=== PATIENT | female | born 1945 | race Caucasian/White ===

== ENCOUNTER → 2016-05-31 | Outpatient (CLI) | payer MEDICARE ==
[~2016-05-31] MED LIST: AMLO2.5T PO; CELE20TA PO; CHLO125TA PO; COLC1CAP PO; DIGITEK PO; ELIQ5TAB PO; FERR325T3 PO; FISH1000 PO; LOPR50TA PO; LOSA100T36 PO; MULT1TAB10 PO; OMEP40CA2 PO; VITA500C24 PO; VITATAB11 PO
--- NOTE | 2016-06-01 08:53 | REP ---
MRI LUMBAR SPINE WITHOUT AND WITH CONTRAST: HISTORY: Thoracic syrinx. CONTRAST: ProHance 20 mL. Decreased signal intensity on T2-weighted images is present in the L3-4 through L5-S1 intervertebral discs. The discs are decreased in height. These findings are consistent with disc degeneration. There is no disc bulge or herniation at the L1-2 level. The L1 nerves exit the neural foramina without compression. A diffuse disc bulge is present at the L2-3 level. There is minimal compression of the thecal sac. A small left intraforaminal disc protrusion is present. There is compression of the left L2 nerve in the neural foramen. The right L2 nerve exits the neural foramen without compression. A diffuse disc bulge is present at the L3-4 level. There is minimal compression of the thecal sac. There is hypertrophy of the posterior articulating facets. The L3 nerves exit the neural foramina without compression. A diffuse disc bulge is present at the L4-5 level. There is minimal compression of the thecal sac. There is hypertrophy of the posterior articulating facets. The L4 nerves exit the neural foramina without compression. A diffuse disc bulge is present at the L5-S1 level. There is minimal compression of the thecal sac. There is hypertrophy of the posterior articulating facets. The L5 nerves exit the neural foramina without compression. A syrinx is present in the lower thoracic spinal cord and conus medullaris. The conus medullaris terminates at the level of the L1-2 intervertebral disc. There is no intrathecal dermoid or lipoma. There is no abnormal enhancement. Hemangiomas are present in the L3 and L5 vertebral bodies. Increased signal intensity on T2-weighted images is present in the end plates of the L5 and S1 vertebral bodies. This represents degenerative change. IMPRESSION: 1. Diffuse disc bulge at the L2-3 level with minimal thecal sac compression. A small left intraforaminal disc protrusion is present. There is compression of the left L2 nerve in the neural foramen. 2. Diffuse disc bulges at the L3-4 through L5-S1 levels with minimal thecal sac compression. 3. Thoracic spinal cord syrinx. Please refer to MRI of the thoracic spine. Signed by Jez Fowler MD 06/01/2016 08:58 A
--- NOTE | 2016-06-01 09:13 | REP ---
MR CERVICAL SPINE WITHOUT AND WITH CONTRAST: HISTORY: Syrinx. CONTRAST: ProHance 20 mL. A disc bulge is present at the C4-5 level. There is minimal effacement of the thecal sac without spinal cord compression. Bilateral uncinate process hypertrophy is present. This produces minimal narrowing of the C4 neural foramina. A disc bulge with associated osteophyte formation is present at the C5-6 level. There is minimal effacement of the thecal sac without spinal cord compression. Bilateral uncinate process hypertrophy is present. This produces minimal narrowing of the C5 neural foramina. A disc bulge with associated osteophyte formation is present at the C6-7 level. There is mild effacement of the thecal sac without spinal cord compression. Bilateral uncinate process hypertrophy is present. This produces minimal and mild narrowing of the right and left C6 neural foramina respectively. There is no other disc bulge or herniation. The remaining neural foramina are patent. The spinal cord is normal in signal intensity. There is no intradural extramedullary lesion. There is no abnormal enhancement. Hemangiomas are present in the C7 and T3 vertebral bodies. Normal signal intensity is present in the remaining cervical vertebral bodies. IMPRESSION: There is cervical spondylosis at the C4-5 through C6-7 levels without spinal cord compression. Signed by Jez Fowler MD 06/01/2016 09:24 A
== END ==
LOC: M RAD 15:55
PROVIDERS: ATTEND Internal Medicine
DX: G95.0 Syringomyelia and syringobulbia (principal); M47.812 Spondylosis without myelopathy or radiculopathy, cervical region
CPT/HCPCS: 72156; 72158; A9576

== ENCOUNTER → 2016-07-19 | Outpatient (REF) | payer MEDICARE ==
[~2016-07-19] MED LIST changes: +LOPR1TAB6 PO; -LOPR50TA PO
[2016-07-19 16:50] LABS: BASO % 0.6 % (0.0-1.0); EOS # 0.2 K/mm3 (0.0-0.50); EOS % 2.3 % (0.0-3.0); LARGE UNSTAINED CELL # 0.1 K/mm3 (0.0-0.4); LARGE UNSTAINED CELL % 1.4 % (0.0-4.0); LYMPH # 1.6 K/mm3 (1.5-4.5); LYMPH % 20.6 % (24.0-44.0); MEAN CORPUSCULAR HEMOGLOBIN 31.4 pg (27.0-33.0); MEAN CORPUSCULAR HGB CONC 33.3 g/dl (32.0-36.5); MEAN CORPUSCULAR VOLUME 94.3 fl (80.0-96.0); MONO # 0.4 K/mm3 (0.0-0.8); NEUTROPHILS # 5.1 K/mm3 (1.8-7.7); NEUTROPHILS % 70.2 % (36.0-66.0); PLATELET COUNT, AUTOMATED 287 k/mm3 (150-450); RED CELL DISTRIBUTION WIDTH 13.8 % (11.5-14.5); WHITE BLOOD COUNT 7.3 K/mm3 (4.0-10.0)
[2016-07-19 17:28] LABS: ALBUMIN 3.8 GM/DL (3.2-5.2); ALBUMIN/GLOBULIN RATIO 1.36 (1.00-1.93); ALKALINE PHOSPHATASE 92 U/L (45-117); ALT/SGPT 61 U/L (12-78); ANION GAP 10 MEQ/L (8-16); AST/SGOT 31 U/L (15-37); BILIRUBIN,TOTAL 0.4 MG/DL (0.2-1.0); BLOOD UREA NITROGEN 25 MG/DL (7-18); CARBON DIOXIDE LEVEL 26 MEQ/L (21-32); CHLORIDE LEVEL 106 MEQ/L (98-107); CREATININE FOR GFR 0.91 MG/DL (0.55-1.02); DIGOXIN LEVEL 0.6 NG/ML (0.5-2.0); GLOMERULAR FILTRATION RATE > 60.0 (>45); GLUCOSE, FASTING 226 MG/DL (80-110); PERCENT SATURATION 21.7 % (13.2-37.4); SODIUM LEVEL 142 MEQ/L (136-145); TOTAL IRON BINDING CAPACITY 378 UG/DL (250-450); TOTAL PROTEIN 6.6 GM/DL (6.4-8.2)
== END ==
LOC: M LAB REF 16:43
PROVIDERS: ATTEND Physician Assistant Medical
DX: R53.83 Other fatigue (principal)

== ENCOUNTER → 2016-08-18 | Outpatient (REF) | payer MEDICARE ==
[2016-08-18 14:38] LABS: DIGOXIN LEVEL 0.9 NG/ML (0.5-2.0)
[2016-08-18 19:29] LABS: FERRITIN 9 NG/ML (8-252); PERCENT SATURATION 11.8 % (13.2-37.4); TOTAL IRON BINDING CAPACITY 467 UG/DL (250-450); VITAMIN B12 LEVEL 613 PG/ML (247-911)
[2016-08-18 19:30] LABS: FOLATE > 24.0 NG/ML (>5.4)
== END ==
LOC: M LAB REF 13:55
PROVIDERS: ATTEND Internal Medicine

== ENCOUNTER → 2016-09-20 | Outpatient (REF) | payer MEDICARE | LOC: M LAB REF 12:14 | PROVIDERS: ATTEND Internal Medicine | DX: M10.9 Gout, unspecified (principal) ==

== ENCOUNTER → 2016-09-29 | Outpatient (CLI) | payer MEDICARE ==
[~2016-09-29] MED LIST changes: +E-Z-PAQUE 96% w/w SUSP 176GM BTL As Ordered ONE
--- NOTE | 2016-09-29 18:06 | REP ---
SMALL BOWEL FOLLOW-THROUGH: The procedure was performed under the direct supervision of Dr. Cassidy. The images were reviewed with Dr. Cassidy. The deputy county clerk film shows no organomegaly or pathological masses. The intestinal gas pattern is nonspecific. Liquid barium was administered and the barium column was followed through the small bowel to the level of the terminal ileum. Small bowel transit time is approximately 95 minutes. During fluoroscopy gentle palpation shows all loops are freely movable and pliable. There are no fixed or angulated loops. The small bowel mucosal pattern is normal in course and caliber. There is no transition to suggest a partial small bowel obstruction. Spot filming of terminal ileum shows it to be unremarkable. IMPRESSION: Small bowel follow-through examination within normal limits. 47 seconds of fluoroscopy time was utilized for this procedure. Reviewed by JOANN Mims 09/30/2016 04:59 PEdited and Signed by Scot Cassidy MD 09/30/2016 07:54 P
== END ==
LOC: M RAD 08:12
PROVIDERS: ATTEND Internal Medicine Gastroenterology
DX: D50.9 Iron deficiency anemia, unspecified (principal)

== ENCOUNTER → 2016-10-14 | Outpatient (CLI) | payer MEDICARE ==
[~2016-10-14] VITALS: Ht 171.4 cm; Wt 103.0 kg
[~2016-10-14] MED LIST changes: +ALLO100T PO; +ATOR1TAB19 PO; +DIGO0.25 PO; +DULO1CAP3 PO; -E-Z-PAQUE 96% w/w SUSP 176GM BTL As Ordered ONE; +FERR325T PO; +FLEC25TA PO; +LIDOCAINE 2% INJ 100 MG/5 ML SDV (FOR ANES.) As Ordered ONE; +NS 1,000 ML IV SCH; +PROPOFOL 200 MG/20 ML VIAL As Ordered ONE; +TRAZ50TA4 PO
--- NOTE | 2016-10-14 08:50 | ROOR ---
Patient Name: Liyah Salinas Procedure Date: 10/14/2016 8:26 AM Date of : 1945 Age: 71 Room: [facility] Gender: Female Note Status: Finalized Procedure: Upper GI endoscopy Indications: Iron deficiency anemia, Hiatal hernia Providers: Gautam BROWN MD Referring MD: Marian SMITH MD Requesting Provider: Medicines: Monitored Anesthesia Care Complications: No immediate complications. Procedure: Pre-Anesthesia Assessment: - The heart rate, respiratory rate, oxygen saturations, blood pressure, adequacy of pulmonary ventilation, and response to care were monitored throughout the procedure. The Endoscope was introduced through the mouth, and advanced to the second part of duodenum. The upper GI endoscopy was accomplished without difficulty. The patient tolerated the procedure well. Findings: A single small bleb with a localized distribution was found in the proximal esophagus. The examined esophagus was normal. The Z-line was regular and was found 30 cm from the incisors. A large hiatal hernia was found. Normal mucosa was found in the entire examined stomach. The examined duodenum was normal. Impression: - Normal esophagus., Z-line regular, 30 cm from the incisors. - Large hiatal hernia free of camerons erosions. Normal mucosa was found in the entire stomach. - Normal examined duodenum. - No specimens collected. Recommendation: - Observe patient's clinical course. - Keep on PPI and iron supplement indefinitely. - For significant anemia/iron deficit despite maximal therapy, would refer for surgical repair of hiatal hernia. Gautam Brown MD Gautam BROWN MD 10/14/2016 8:49:33 AM This report has been signed electronically. Number of Addenda: 0 Note Initiated On: 10/14/2016 8:26 AM Estimated Blood Loss: Estimated blood loss: none.
[2016-10-14 09:00] VITALS: BP 150/76
== END ==
LOC: M OPP 07:44
PROVIDERS: ATTEND Internal Medicine Gastroenterology
DX: D50.9 Iron deficiency anemia, unspecified (principal); K44.9 Diaphragmatic hernia without obstruction or gangrene; K22.8 Other specified diseases of esophagus; I10 Essential (primary) hypertension; I48.91 Unspecified atrial fibrillation; F41.9 Anxiety disorder, unspecified; F32.9 Major depressive disorder, single episode, unspecified; Z80.0 Family history of malignant neoplasm of digestive organs; Z79.01 Long term (current) use of anticoagulants; Z79.899 Other long term (current) drug therapy; Z88.0 Allergy status to penicillin; Z88.2 Allergy status to sulfonamides

== ENCOUNTER → 2016-10-28 | Outpatient (REF) | payer MEDICARE ==
[~2016-10-28] MED LIST changes: -LIDOCAINE 2% INJ 100 MG/5 ML SDV (FOR ANES.) As Ordered ONE; -NS 1,000 ML IV SCH; -PROPOFOL 200 MG/20 ML VIAL As Ordered ONE
== END ==
LOC: M LAB REF 16:41
PROVIDERS: ATTEND Internal Medicine
DX: M10.9 Gout, unspecified (principal)

== ENCOUNTER → 2017-03-14 | Outpatient (REF) | payer MEDICARE ==
[~2017-03-14] MED LIST changes: +FERR1TAB8 PO; -FERR325T PO; +TRAZ50TA11 PO; -TRAZ50TA4 PO
[2017-03-14 18:52] LABS: DIGOXIN LEVEL 1.1 NG/ML (0.5-2.0); URIC ACID 6.6 MG/DL (2.6-6.0)
== END ==
LOC: M LAB REF 16:39
PROVIDERS: ATTEND Internal Medicine
DX: E55.9 Vitamin D deficiency, unspecified (principal); M10.9 Gout, unspecified; I48.0 Paroxysmal atrial fibrillation

== ENCOUNTER 2017-05-24 20:24 | Emergency (ER) | payer MEDICARE ==
[2017-05-24] MEDS: LevoFLOXacin IV 500 MG in APPROPRIATE DILUENT 1 EA IV (21:45)
[2017-05-24] MEDS: metroNIDAZOLE 500 MG in APPROPRIATE DILUENT 1 EA IV (22:30)
[2017-05-24] MEDS: TETANUS/DIPHTHERIA TOX ADSORB ADULT 0.5ML SYR/VIAL (90714) IM (22:57)
== END 2017-05-25 00:53 | disposition home or self-care (01) ==
LOC: M ED 05-25 00:53
DX: S61.254A Open bite of right ring finger without damage to nail, initial encounter (principal); Y04.1XXA Assault by human bite, initial encounter; Y92.009 Unspecified place in unspecified non-institutional (private) residence as the place of occurrence of the external cause; I48.91 Unspecified atrial fibrillation; E11.9 Type 2 diabetes mellitus without complications; I10 Essential (primary) hypertension; E78.9 Disorder of lipoprotein metabolism, unspecified; Z79.899 Other long term (current) drug therapy; Z88.0 Allergy status to penicillin; Z88.1 Allergy status to other antibiotic agents; Z88.2 Allergy status to sulfonamides; Z87.891 Personal history of nicotine dependence
CPT/HCPCS: 90714

== ENCOUNTER → 2017-08-15 | Outpatient (REF) | payer MEDICARE ==
[2017-08-15 18:01] LABS: DIGOXIN LEVEL 0.9 NG/ML (0.5-2.0)
[2017-08-15 18:01] LABS: URIC ACID 6.1 MG/DL (2.6-6.0)
== END ==
LOC: M LAB REF 16:56
DX: M10.9 Gout, unspecified (principal); I48.0 Paroxysmal atrial fibrillation
CPT/HCPCS: 80162

== ENCOUNTER → 2017-09-20 | Outpatient (CLI) | payer MEDICARE | LOC: M RAD 13:14 | DX: Z12.31 Encounter for screening mammogram for malignant neoplasm of breast (principal) | CPT/HCPCS: 77067 ==

== ENCOUNTER 2017-10-06 06:06 | Day surgery (SDC) | payer MEDICARE ==
[~2017-10-06 06:06] MED LIST changes: -ALLO100T PO; -AMLO2.5T PO; -ATOR1TAB19 PO; -CELE20TA PO; -CHLO125TA PO; -COLC1CAP PO; -DIGITEK PO; -DIGO0.25 PO; -DULO1CAP3 PO; -ELIQ5TAB PO; -FERR1TAB8 PO; -FERR325T3 PO; -FISH1000 PO; -FLEC25TA PO; -LOPR1TAB6 PO; -LOSA100T36 PO; -MULT1TAB10 PO; -OMEP40CA2 PO; -TRAZ50TA11 PO; -VITA500C24 PO; -VITATAB11 PO; +ceFAZolin SOD 1 GM in D5W MINI-BAG PLUS 50 ML IV
[2017-10-06] MEDS ORDERED: LevoFLOXacin(LEVAQUIN)500 MG/100 ML BAG (J1956) As Ordered (07:20)
[2017-10-06] MEDS ORDERED: PROPOFOL 200 MG/20 ML VIAL As Ordered (07:21)
[2017-10-06] MEDS ORDERED: MIDAZOLAM INJ 2 MG/2 ML VIAL (J2250) As Ordered (07:21)
[2017-10-06] MEDS ORDERED: LIDOCAINE 2% INJ 100 MG/5 ML SDV (FOR ANES.) As Ordered (07:21)
[2017-10-06] MEDS ORDERED: fentaNYL 100 MCG/2 ML INJECTION (J3010) As Ordered (07:21)
[2017-10-06] MEDS: LR 1,000 ML IV (07:25)
[2017-10-06] MEDS: LevoFLOXacin IV 500 MG in APPROPRIATE DILUENT 1 EA IV (07:27)
[2017-10-06] MEDS ORDERED: LevoFLOXacin IV 500 MG in APPROPRIATE DILUENT 1 EA IV (07:30)
[2017-10-06 07:47] LABS: BEDSIDE GLUCOSE 195 MG/DL (83-110)
[2017-10-06] MEDS: BUPIVACAINE/EPIN 0.5% 30 ML VIAL As Ordered ×2 (08:00→08:13)
== END 2017-10-06 09:10 | disposition home or self-care (01) ==
LOC: M SDC 06:06
DX: D17.1 Benign lipomatous neoplasm of skin and subcutaneous tissue of trunk (principal); I48.91 Unspecified atrial fibrillation; I10 Essential (primary) hypertension; G47.30 Sleep apnea, unspecified; K44.9 Diaphragmatic hernia without obstruction or gangrene; M10.9 Gout, unspecified; D64.9 Anemia, unspecified; Z79.899 Other long term (current) drug therapy
CPT/HCPCS: 11406

== ENCOUNTER → 2017-12-12 | Outpatient (REF) | payer MEDICARE ==
[2017-12-12 17:35] LABS: RETICULOCYTE # 145.5 10^9/L (17-77); RETICULOCYTE % 3.4 % (0.5-1.5)
[2017-12-12 17:50] LABS: C REACTIVE PROTEIN QUANTITATIV < 0.30 MG/DL (0.00-0.30); FERRITIN 8 NG/ML (8-252); IRON (FE) 60 UG/DL (50-170); PERCENT SATURATION 12.6 % (13.2-45.0); TOTAL IRON BINDING CAPACITY 476 UG/DL (250-450)
[2017-12-12 17:55] LABS: FOLATE 14.2 NG/ML; VITAMIN B12 LEVEL 643 PG/ML
[2017-12-13 09:39] LABS: ERYTHROCYTE SEDIMENTATION RATE 6 mm/hr (0-30)
== END ==
LOC: M LAB REF 16:40
DX: D50.9 Iron deficiency anemia, unspecified (principal)
CPT/HCPCS: 82746

== ENCOUNTER → 2018-01-01 | Outpatient (REF) | payer MEDICARE ==
[2018-01-01 15:56] LABS: HEMATOCRIT 39.3 % (36.0-47.0); HEMOGLOBIN 11.9 g/dl (12.0-15.5); MEAN CORPUSCULAR HEMOGLOBIN 26.8 pg (27.0-33.0); MEAN CORPUSCULAR HGB CONC 30.3 g/dl (32.0-36.5); MEAN CORPUSCULAR VOLUME 88.5 fl (80.0-96.0); PLATELET COUNT, AUTOMATED 270 10^3/uL (150-450); RED BLOOD COUNT 4.44 10^6/uL (4.00-5.40); WHITE BLOOD COUNT 4.2 10^3/uL (4.0-10.0)
[2018-01-01 16:19] LABS: MAGNESIUM LEVEL 2.5 MG/DL (1.8-2.4)
== END ==
LOC: M LABDRAW1 13:46
DX: I48.0 Paroxysmal atrial fibrillation (principal)
CPT/HCPCS: 83735

== ENCOUNTER 2018-01-30 07:27 | Day surgery (SDC) | payer MEDICARE ==
[2018-01-30] MEDS ORDERED: PROPOFOL 200 MG/20 ML VIAL As Ordered ×2 (07:29)
[2018-01-30] MEDS: NS 1,000 ML IV (07:45)
[2018-01-30] MEDS ORDERED: LIDOCAINE 2% INJ 100 MG/5 ML SDV (FOR ANES.) As Ordered (08:40)
[2018-01-30] MEDS ORDERED: fentaNYL 100 MCG/2 ML INJECTION (J3010) As Ordered (08:41)
== END 2018-01-30 09:36 | disposition home or self-care (01) ==
LOC: M OPP 07:27
DX: D50.9 Iron deficiency anemia, unspecified (principal); D12.3 Benign neoplasm of transverse colon; K57.30 Diverticulosis of large intestine without perforation or abscess without bleeding; K64.8 Other hemorrhoids; K44.9 Diaphragmatic hernia without obstruction or gangrene; I48.91 Unspecified atrial fibrillation; I10 Essential (primary) hypertension; E78.5 Hyperlipidemia, unspecified; E11.9 Type 2 diabetes mellitus without complications; M10.9 Gout, unspecified; K21.9 Gastro-esophageal reflux disease without esophagitis; R12 Heartburn; R23.3 Spontaneous ecchymoses; M19.90 Unspecified osteoarthritis, unspecified site; M54.89 Other dorsalgia; M54.2 Cervicalgia; F41.9 Anxiety disorder, unspecified; F32.9 Major depressive disorder, single episode, unspecified; Z78.0 Asymptomatic menopausal state; G47.8 Other sleep disorders; R06.83 Snoring; Z88.0 Allergy status to penicillin; Z88.2 Allergy status to sulfonamides; Z79.899 Other long term (current) drug therapy; Z79.01 Long term (current) use of anticoagulants; Z80.3 Family history of malignant neoplasm of breast; Z80.8 Family history of malignant neoplasm of other organs or systems
CPT/HCPCS: 45385

== ENCOUNTER → 2018-02-14 | Outpatient (REF) | payer MEDICARE ==
[2018-02-14 19:23] LABS: DIGOXIN LEVEL 0.8 NG/ML (0.5-2.0)
== END ==
LOC: M LAB REF 17:20
DX: I48.0 Paroxysmal atrial fibrillation (principal)
CPT/HCPCS: 80162

== ENCOUNTER → 2018-09-19 | Outpatient (REF) | payer MEDICARE ==
[~2018-09-19] MED LIST changes: +ALLO100T PO; +ALLO10TA PO; +AMLO2.5T3 PO; +ATOR1TAB19 PO; +CELE20TA PO; +CHLO125TA PO; +CIPR-249 PO; +COEN200C PO; +COLC1CAP PO; +DIGITEK PO; +DIGO0.25 PO; +DIGO0.259 PO; +DULO1CAP3 PO; +ELIQ5TAB PO; +FERR1TAB8 PO; +FERR325T3 PO; +FERR325T82 PO; +FISH1000 PO; +FLEC25TA PO; +LOPR1TAB6 PO; +LOSA100T50 PO; +METR-265 PO; +MULT1TAB10 PO; +OMEP40CA2 PO; +TRAZ-160 PO; +VITA500C24 PO; +VITATAB11 PO; +ZYRT10CA5 PO; -ceFAZolin SOD 1 GM in D5W MINI-BAG PLUS 50 ML IV
== END ==
LOC: M LAB REF 16:40
PROVIDERS: ATTEND Internal Medicine
DX: M10.9 Gout, unspecified (principal)

== ENCOUNTER → 2019-01-01 | Outpatient (REF) | payer MEDICARE ==
[~2019-01-01] MED LIST changes: -DULO1CAP3 PO; +DULO1CAP6 PO; -TRAZ-160 PO; +TRAZ-252 PO
[2019-01-02 14:42] LABS: PERCENT SATURATION 7.1 % (13.2-45.0)
== END ==
LOC: M LAB REF 17:25
PROVIDERS: ATTEND Internal Medicine
DX: M10.9 Gout, unspecified (principal); D50.9 Iron deficiency anemia, unspecified

== ENCOUNTER → 2019-02-04 | Outpatient (CLI) | payer MEDICARE ==
--- NOTE | 2019-02-04 15:30 | REP ---
BILATERAL SCREENING DIGITAL MAMMOGRAM WITH 3D TOMOSYNTHESIS: There are no palpable abnormalities or other breast complaints. The the patient states she is not had a clinical breast examination in over a year. The the patient states she performs self-breast examinations four times per year. The Tyrer-Cuzick Score is: 7.7% . Comparison is 07/14/2015 and 08/29/2012. There are scattered areas of fibroglandular density. There is no dominant mass, micro calcific cluster or architectural distortion that would indicate malignancy. There are no additional findings on 3D tomosynthesiss. There is no change from the prior study. Impression: BIRADS/ACR category 1 mammogram. Negative. Recommendation: Routine annual screening mammography. This mammogram was interpreted with the aid of a FDA approved computer-aided detection system. A. Negative mammogram reports should not delay biopsy if a dominant or clinically suspicious mass is present. B. Not all breast cancers are identified by mammography or tomosynthesis. C. Adenosis and dense breasts may obscure an underlying neoplasm. Patient letter M1. Electronically Signed by Scot Gallo MD 02/04/2019 03:21 P
== END ==
LOC: M WHC 13:39
PROVIDERS: ATTEND Internal Medicine
DX: Z12.31 Encounter for screening mammogram for malignant neoplasm of breast (principal)

== ENCOUNTER → 2019-02-21 | Outpatient (REF) | payer MEDICARE ==
[2019-02-21 14:31] LABS: C REACTIVE PROTEIN QUANTITATIV < 0.30 MG/DL (0.00-0.30); DIGOXIN LEVEL 1.2 NG/ML (0.5-2.0)
== END ==
LOC: M LAB REF 13:42
PROVIDERS: ATTEND Internal Medicine
DX: M10.9 Gout, unspecified (principal); I48.0 Paroxysmal atrial fibrillation

== ENCOUNTER → 2019-02-28 | Outpatient (CLI) | payer MEDICARE ==
[~2019-02-28] MED LIST changes: -OMEP40CA2 PO; +OMEP40CA97 PO
--- NOTE | 2019-02-28 12:18 | REP ---
Chest x-ray: Two views. History: Short of breath. Comparison chest x-ray: March 10, 2015. Findings: There is a [id number] size hiatal hernia behind the heart. The lungs are well inflated and clear. Heart is not enlarged. The aorta is slightly calcific. There are mild degenerative changes in the thoracic spine. Pulmonary vasculature is not increased. Pleural angles are sharp. Impression: Moderate to large hiatal hernia. Otherwise no acute disease. Electronically Signed by Navid Arvizu MD 02/28/2019 12:10 P
== END ==
LOC: M RAD 10:54
PROVIDERS: ATTEND Internal Medicine
DX: M51.34 Other intervertebral disc degeneration, thoracic region (principal); K44.9 Diaphragmatic hernia without obstruction or gangrene; R06.02 Shortness of breath

== ENCOUNTER → 2019-04-03 | Outpatient (REF) | payer MEDICARE ==
[2019-04-04 13:50] LABS: PERCENT SATURATION 9.3 % (13.2-45.0)
== END ==
LOC: M LAB REF 16:41
PROVIDERS: ATTEND Internal Medicine
DX: I48.0 Paroxysmal atrial fibrillation (principal)

== ENCOUNTER → 2020-03-10 | Outpatient (REF) | payer MEDICARE ==
[~2020-03-10] MED LIST changes: -COEN200C PO; +RA C200C2 PO
== END ==
LOC: M LAB REF 13:31
PROVIDERS: ATTEND Internal Medicine Endocrinology, Diabetes & Metabolism
DX: E04.1 Nontoxic single thyroid nodule (principal)

== ENCOUNTER → 2020-03-19 | Outpatient (REF) | payer MEDICARE | LOC: M LAB REF 16:17 | PROVIDERS: ATTEND Internal Medicine | DX: M79.673 Pain in unspecified foot (principal) ==

== ENCOUNTER → 2020-05-27 | Outpatient (REF) | payer MEDICARE | LOC: M LAB REF 16:21 | PROVIDERS: ATTEND Internal Medicine | DX: I50.32 Chronic diastolic (congestive) heart failure (principal) ==

== ENCOUNTER → 2020-07-13 | Outpatient (REF) | payer MEDICARE ==
[2020-07-13 17:33] LABS: AMORPHOUS SEDIMENT SMALL (NEGATIVE); APPEARANCE, URINE CLOUDY (CLEAR); BACTERIA, URINE AUTO NEGATIVE (NEGATIVE); BILIRUBIN, URINE AUTO NEGATIVE (NEGATIVE); BLOOD, URINE BLOOD 1+ (NEGATIVE); COLOR, URINE YELLOW (YELLOW); GLUCOSE, URINE (UA) AUTO NEGATIVE (NEGATIVE); KETONE, URINE AUTO TRACE mg/dL (NEGATIVE); LEUKOCYTE ESTERASE, URINE AUTO TRACE (NEGATIVE); MUCUS, URINE SMALL (NEGATIVE); NITRITE, URINE AUTO NEGATIVE (NEGATIVE); PROTEIN, URINE AUTO NEGATIVE (NEGATIVE); RBC, URINE AUTO 11 /HPF (0-3); SPECIFIC GRAVITY URINE AUTO 1.023 (1.002-1.035); SQUAMOUS EPITHELIAL CELL UR AU 1 /HPF (0-6); UROBILINOGEN, URINE AUTO 0.2 mg/dL (0.0-2.0); WBC, URINE AUTO 2 /HPF (0-3)
== END ==
LOC: M LAB REF 16:23
PROVIDERS: ATTEND Obstetrics & Gynecology
DX: N39.41 Urge incontinence (principal)

== ENCOUNTER 2020-08-27 20:15 | Emergency (ER) | payer MEDICARE ==
[~2020-08-27] VITALS: Ht 170.2 cm; Wt 114.6 kg
[2020-08-27] MEDS ORDERED: DULO1CAP4 (20:46)
[2020-08-27] MEDS ORDERED: METF750T36 (20:46)
[2020-08-27 21:50] LABS: BASO # 0.1 10^3/uL (0.0-0.2); BASO % 0.5 % (0.0-1.0); EOS # 0.1 10^3/uL (0.0-0.5); EOS % 0.9 % (0.0-3.0); HEMATOCRIT 41.8 % (36.0-47.0); HEMOGLOBIN 13.7 g/dl (12.0-15.5); LYMPH # 1.6 10^3/uL (1.5-5.0); LYMPH % 16.8 % (24.0-44.0); MEAN CORPUSCULAR HGB CONC 32.8 g/dl (32.0-36.5); MEAN CORPUSCULAR VOLUME 88.4 fl (80.0-96.0); MONO # 0.9 10^3/uL (0.0-0.8); MONO % 9.5 % (2.0-8.0); NEUTROPHILS # 6.7 10^3/uL (1.5-8.5); NEUTROPHILS % 71.8 % (36.0-66.0); PLATELET COUNT, AUTOMATED 266 10^3/uL (150-450); RED BLOOD COUNT 4.73 10^6/uL (4.00-5.40); WHITE BLOOD COUNT 9.4 10^3/uL (4.0-10.0)
[2020-08-27 22:00] LABS: INR 1.25
[2020-08-27] MEDS ORDERED: NS 500 ML IV ONE (22:05)
[2020-08-27 22:19] LABS: ALBUMIN 3.8 GM/DL (3.2-5.2); BILIRUBIN,DIRECT 0.1 MG/DL (0.0-0.2); BILIRUBIN,TOTAL 0.6 MG/DL (0.2-1.0); CALCIUM LEVEL 9.3 MG/DL (8.8-10.2); CK-MB VALUE MASS 2.2 NG/ML (<3.6); CREATININE FOR GFR 1.05 MG/DL (0.55-1.30); GLOMERULAR FILTRATION RATE 54.5 (>39); MB/CK RELATIVE INDEX 3.01 (< OR =4); POTASSIUM SERUM 3.7 MEQ/L (3.5-5.1); TOTAL PROTEIN 6.8 GM/DL (6.4-8.2); TROPONIN I 0.02 NG/ML (< 0.10)
--- NOTE | 2020-08-27 22:23 | REPVR ---
PROCEDURE INFORMATION: Exam: XR Chest Exam date and time: 08/27/20 (9:09pm) Age: 75 years old Clinical indication: Chest pain TECHNIQUE: Imaging protocol: Portable CXR Views: 1 view COMPARISON: Chest films of 02/28/19 FINDINGS: Lungs: No consolidation. Pleural spaces: Unremarkable. No pleural effusions. No pneumothorax. Heart/Mediastinum: Unremarkable. No cardiomegaly. Bones/joints: Unremarkable. Other findings: A large hiatal hernia (9-10 cm size) is again seen in the retrocardiac region. IMPRESSION: No acute findings. Redemonstration of a large retrocardiac hiatal hernia. Electronically signed by: Sobeida Shaw On 08/27/2020 22:24:24 PM
[2020-08-28 00:30] VITALS: BP 173/82
--- NOTE | 2020-08-28 20:42 | ECGEPIP ---
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
--- NOTE | 2020-08-29 07:23 | ED PDOC ---
Post-Departure Follow-Up radiology report faxed to Ev Dixon MD Aug 29, 2020 07:23
== END 2020-08-28 00:58 | disposition home or self-care (01) ==
LOC: M ED 20:15
DX: R00.2 Palpitations (principal); I48.91 Unspecified atrial fibrillation; E11.9 Type 2 diabetes mellitus without complications; I10 Essential (primary) hypertension; Z79.01 Long term (current) use of anticoagulants; Z79.899 Other long term (current) drug therapy; Z88.0 Allergy status to penicillin; Z88.2 Allergy status to sulfonamides

== ENCOUNTER → 2020-09-22 | Outpatient (REF) | payer MEDICARE ==
[~2020-09-22] MED LIST changes: +DULO1CAP4; +METF750T36
== END ==
LOC: M LAB REF 16:17
PROVIDERS: ATTEND Internal Medicine
DX: I48.0 Paroxysmal atrial fibrillation (principal)

== ENCOUNTER → 2020-11-16 | Outpatient (REF) | payer MEDICARE ==
[~2020-11-16] MED LIST changes: +OMEP40CA4 PO; -OMEP40CA97 PO
== END ==
LOC: M LAB REF 16:26
PROVIDERS: ATTEND Internal Medicine
DX: I48.0 Paroxysmal atrial fibrillation (principal)

== ENCOUNTER → 2020-11-24 | Outpatient (CLI) | payer MEDICARE ==
[2020-11-24 13:36] LABS: HEMATOCRIT 45.1 % (36.0-47.0); MEAN CORPUSCULAR HEMOGLOBIN 29.5 pg (27.0-33.0); MEAN CORPUSCULAR VOLUME 94.9 fl (80.0-96.0); PLATELET COUNT, AUTOMATED 249 10^3/uL (150-450); RED BLOOD COUNT 4.75 10^6/uL (4.00-5.40)
[2020-11-24 14:14] LABS: ALBUMIN 3.6 GM/DL (3.2-5.2); ALT/SGPT 45 U/L (12-78); BILIRUBIN,TOTAL 0.6 MG/DL (0.2-1.0); BLOOD UREA NITROGEN 17 MG/DL (7-18); CALCIUM LEVEL 9.2 MG/DL (8.8-10.2); CARBON DIOXIDE LEVEL 30 MEQ/L (21-32); CHLORIDE LEVEL 106 MEQ/L (98-107); CREATININE FOR GFR 0.84 MG/DL (0.55-1.30); GLOMERULAR FILTRATION RATE > 60.0 (>39); GLUCOSE, FASTING 161 MG/DL (70-100); NT-PRO BNP 203 PG/ML (<125); POTASSIUM SERUM 4.3 MEQ/L (3.5-5.1); SODIUM LEVEL 142 MEQ/L (136-145); TOTAL PROTEIN 6.5 GM/DL (6.4-8.2)
== END ==
LOC: M PLALAB 10:49
PROVIDERS: ATTEND Internal Medicine Cardiovascular Disease
DX: I48.0 Paroxysmal atrial fibrillation (principal)

== ENCOUNTER → 2020-12-08 | Outpatient (CLI) | payer MEDICARE ==
[~2020-12-08] MED LIST changes: +ISOVUE-370 76% 100ML VIAL As Ordered ONE
--- NOTE | 2020-12-08 17:14 | REP ---
INDICATION: PRIMARY NODULE/US FIRST. COMPARISON: Comparison chest CT studies are dated December 03, 2019 and October 22 2019.. TECHNIQUE: Helical scanning is acquired and 3 mm axial images are generated. Coronal and sagittal MPR and coronal MIP images are provided. FINDINGS: Digital preliminary ship's carpenter radiograph and axial CT images demonstrate is large sliding-type hiatal hernia again noted. There is mild diffuse fatty infiltration of the liver. No adrenal abnormality is observed. Visualized upper abdominal structures are otherwise unremarkable. Mitral annular calcification and some vascular calcification is observed including fairly extensive left coronary artery vascular calcification. There is a small nodule in the right thyroid lobe which is decreased in size from the December 03, 2019 study. There are scattered normal size stable mediastinal lymph nodes. No pericardial effusion is seen. No pleural effusion is seen. There is good opacification of the pulmonary arterial tree and there is no CT evidence of pulmonary embolus, aortic aneurysm, or aortic dissection. There are small stable nodules in the right middle lobe and right lower lobe unchanged from the December 03, 2019 study. There is a new broad-based pleural nodule versus pleural plaque in the left lower lobe region seen on images 41-44. This measures 13 mm in width. This is a new pleural plaque or pleural nodule. No other new pulmonary parenchymal abnormality is observed. There is some chronic atelectasis adjacent to the hiatal hernia. No endobronchial or bony destructive lesion is seen. IMPRESSION: There is a new pleural plaque versus pleural based pulmonary nodule 13 mm in greatest diameter in the left lower lobe. Pleural plaque is favored. Follow-up chest CT study suggested in 4-6 months. Otherwise unchanged. Large hiatal hernia again noted. <Electronically signed by Fran Arvizu > 12/08/20 [id number]
== END ==
LOC: M RAD 14:42
PROVIDERS: ATTEND Internal Medicine
DX: R91.1 Solitary pulmonary nodule (principal); K44.9 Diaphragmatic hernia without obstruction or gangrene; I77.1 Stricture of artery; R09.89 Other specified symptoms and signs involving the circulatory and respiratory systems
CPT/HCPCS: 71260; 93880; Q9967

== ENCOUNTER → 2020-12-08 | Outpatient (CLI) | payer MEDICARE ==
[~2020-12-08] MED LIST changes: -ISOVUE-370 76% 100ML VIAL As Ordered ONE
--- NOTE | 2020-12-08 16:15 | REP ---
INDICATION: OTHER SYMPTOMS OF RESP/CIRCULATORY SYSTEMS/ CT 2ND COMPARISON: None. TECHNIQUE: Real-time ultrasound evaluation and duplex Doppler interrogation of the extracranial carotid vasculature is performed. FINDINGS: There is mild to moderate plaquing and narrowing in both carotid bulbs extending into the internal and external carotid arteries. Luminal narrowing is less than 50% on the right. On the left there is a greater degree of plaquing and there is increased peak systolic velocity in the left internal carotid artery with elevated ICA to CCA ratio, suggesting stenosis 50-79%. The vertebral arteries demonstrate normal direction of flow. RIGHT LEFT Peak systolic velocity ICA 82.1 cm/s 156.0 cm/s End diastolic velocity ICA 24.6 cm/s 36.1 cm/s Peak systolic velocity CCA 82.0 cm/s 70.3cm/s Peak systolic velocity ECA 85.5 cm/s 92.7 cm/s ICA/CCA ratio 1.00 2.21 IMPRESSION: [id number]-[id number]-fkagshxn plaquing and narrowing of the carotid bulbs and internal carotid arteries, left greater than right. There are findings of stenosis of the left internal carotid artery 50-79%. <Electronically signed by Scot Cassidy > 12/08/20 [id number]
== END ==
LOC: M RAD 14:39
PROVIDERS: ATTEND Internal Medicine Cardiovascular Disease
DX: I77.1 Stricture of artery (principal); R09.89 Other specified symptoms and signs involving the circulatory and respiratory systems

== ENCOUNTER → 2021-01-29 | Outpatient (CLI) | payer MEDICARE ==
--- NOTE | 2021-01-29 14:43 | REP ---
INDICATION: ЕКАТЕРИНА DIAG MAMMO/R BREAST MASTODYNIA. COMPARISON: Multiple TECHNIQUE: Digital diagnostic bilateral mammography was carried out in the CC and MLO projections using both 2D and 3D modalities and compared to the prior exams. In addition, diagnostic spot compression views of the retroareolar region of the right breast was obtained in the CC and MLO projections along with ultrasonography due to retroareolar breast pain. FINDINGS: The breasts are unchanged in size and shape. Scattered dense heterogenous nodular fibroglandular elements are seen bilaterally in a stable appearing pattern. There are no gabriela soft tissue densities or spiculated masses. There is no internal architectural distortion. Stable benign calcifications are again seen bilaterally. Diagnostic digital magnified spot-compression views right breast show no abnormalities. Diagnostic ultrasonography of the right breast region of interest shows no cystic or solid masses. The [place] volumetric breast density pattern is b. IMPRESSION: BIRADS/ACR category 2 benign findings. There is no evidence of malignant alteration of either breast. This patient's Tyrer-Cuzick lifetime breast cancer risk assessment score is 6.7%. This mammogram was interpreted with the aid of an FDA-approved computer-aided detection system. The patient states she had a clinical breast exam in November 2020. The patient letter being requested is M1. RECOMMENDATION: Repeat screening mammography recommended 1 year (for women over 40). <Electronically signed by Everardo Jones > 01/29/21 [id number]
== END ==
LOC: M WHC 13:10
PROVIDERS: ATTEND Internal Medicine
DX: Z12.39 Encounter for other screening for malignant neoplasm of breast (principal); N64.4 Mastodynia
CPT/HCPCS: 76642; 77066; G0279

== ENCOUNTER → 2021-03-25 | Outpatient (REF) | payer MEDICARE ==
[2021-03-25 18:13] LABS: DIGOXIN LEVEL 0.4 NG/ML (0.5-2.0); URIC ACID 3.5 MG/DL (2.6-6.0)
== END ==
LOC: M LAB REF 16:30
PROVIDERS: ATTEND Internal Medicine
DX: I48.0 Paroxysmal atrial fibrillation (principal); M10.9 Gout, unspecified

== ENCOUNTER → 2021-07-14 | Outpatient (CLI) | payer MEDICARE, OTHER ==
[~2021-07-14] MED LIST changes: +ISOVUE-370 76% 100ML VIAL As Ordered ONE; +LOSA100T45 PO; -LOSA100T50 PO
== END ==
LOC: M RAD 17:13
PROVIDERS: ATTEND Internal Medicine
DX: R91.1 Solitary pulmonary nodule (principal)
CPT/HCPCS: 71260; Q9967

== ENCOUNTER → 2021-09-27 | Outpatient (REF) | payer OTHER ==
[~2021-09-27] MED LIST changes: -ISOVUE-370 76% 100ML VIAL As Ordered ONE
== END ==
LOC: M LAB REF 12:16
PROVIDERS: ATTEND Internal Medicine
DX: I48.0 Paroxysmal atrial fibrillation (principal)

== ENCOUNTER 2021-10-22 16:57 | Observation (INO) | payer OTHER ==
[~2021-10-22] VITALS: Ht 170.2 cm; Wt 108.7 kg
[2021-10-22 18:19] LABS: BASO % 0.5 % (0.0-1.0); EOS # 0.2 10^3/uL (0.0-0.5); EOS % 2.5 % (0.0-3.0); HEMATOCRIT 38.6 % (36.0-47.0); HEMOGLOBIN 12.7 g/dl (12.0-15.5); LYMPH # 1.5 10^3/uL (1.5-5.0); LYMPH % 20.6 % (24.0-44.0); MEAN CORPUSCULAR HEMOGLOBIN 31.1 pg (27.0-33.0); MEAN CORPUSCULAR HGB CONC 32.9 g/dl (32.0-36.5); MEAN CORPUSCULAR VOLUME 94.6 fl (80.0-96.0); MONO # 0.7 10^3/uL (0.0-0.8); MONO % 9.5 % (2.0-8.0); NEUTROPHILS # 4.9 10^3/uL (1.5-8.5); NEUTROPHILS % 66.4 % (36.0-66.0); PLATELET COUNT, AUTOMATED 274 10^3/uL (150-450); RED BLOOD COUNT 4.08 10^6/uL (4.00-5.40); WHITE BLOOD COUNT 7.3 10^3/uL (4.0-10.0)
[2021-10-22 18:32] LABS: INR 1.08; PROTHROMBIN TIME 14.4 SECONDS (12.7-14.5)
[2021-10-22 18:33] LABS: PARTIAL THROMBOPLASTIN TIME 28.5 SECONDS (25.9-37.0)
[2021-10-22] MEDS ORDERED: PANTOPRAZOLE 40MG VIAL IV ONE (19:30)
[2021-10-22 19:33] LABS: ALBUMIN 3.4 GM/DL (3.2-5.2); BILIRUBIN,DIRECT 0.1 MG/DL (0.0-0.2); BILIRUBIN,TOTAL 0.5 MG/DL (0.2-1.0); CALCIUM LEVEL 9.3 MG/DL (8.8-10.2); CREATININE FOR GFR 1.01 MG/DL (0.55-1.30); GLOMERULAR FILTRATION RATE 56.9 (>39); POTASSIUM SERUM 4.2 MEQ/L (3.5-5.1); TOTAL PROTEIN 6.5 GM/DL (6.4-8.2)
[2021-10-22 21:00] VITALS: BP 147/77
[2021-10-22] MEDS ORDERED: traZODone 50 MG TAB PO SCH (21:00)
[2021-10-22] MEDS ORDERED: ATORVASTATIN 20 MG TAB PO SCH (21:00)
[2021-10-22] MEDS ORDERED: LOSARTAN 50MG TABLET PO SCH (21:00)
[2021-10-22] MEDS ORDERED: METOPROLOL TART 50 MG TAB PO SCH (21:00)
[2021-10-22] MEDS ORDERED: DIGOXIN 0.25 MG TAB PO SCH (21:00)
[2021-10-22] MEDS ORDERED: GLUCOSE 4GM CHEW TABLET PO PRN (21:20)
[2021-10-22] MEDS ORDERED: GLUCAGON INJ 1MG VIAL SC PRN (21:20)
[2021-10-22] MEDS ORDERED: D5W/0.9% SODIUM CHLORIDE 1,000 ML IV SCH (21:20)
[2021-10-22] MEDS ORDERED: DEXTROSE 50% 50 ML SYRINGE IV PRN (21:20)
[2021-10-22] MEDS ORDERED: TRAZ-252 PO (22:22)
[2021-10-22] MEDS ORDERED: ATOR1TAB21 PO (22:22)
[2021-10-22] MEDS ORDERED: AMLO1TAB25 PO (22:22)
[2021-10-22] MEDS ORDERED: JARD1TAB PO (22:22)
[2021-10-22] MEDS ORDERED: HOME MED LIST COMPLETE! XX SCH (22:25)
[2021-10-22 23:51] LABS: RSV AMPLIFICATION NEGATIVE (NEGATIVE)
[2021-10-23 02:12] LABS: HEMATOCRIT 34.5 % (36.0-47.0); HEMOGLOBIN 11.1 g/dl (12.0-15.5)
[2021-10-23] MEDS ORDERED: traMADol 50 MG TAB PO PRN (03:30)
[2021-10-23] MEDS ORDERED: LIDOCAINE 5% (LIDODERM) PATCH TD ONE (04:00)
[2021-10-23] MEDS: INSULIN LISPRO (NovoLOG) PER UNIT SC SCH ×4 (06:00→17:02)
[2021-10-23 06:32] LABS: BASO % 0.6 % (0.0-1.0); EOS # 0.2 10^3/uL (0.0-0.5); EOS % 2.6 % (0.0-3.0); HEMATOCRIT 36.4 % (36.0-47.0); HEMOGLOBIN 11.7 g/dl (12.0-15.5); LYMPH # 1.8 10^3/uL (1.5-5.0); MEAN CORPUSCULAR HEMOGLOBIN 30.7 pg (27.0-33.0); MEAN CORPUSCULAR HGB CONC 32.1 g/dl (32.0-36.5); MEAN CORPUSCULAR VOLUME 95.5 fl (80.0-96.0); MONO # 0.7 10^3/uL (0.0-0.8); NEUTROPHILS # 4.5 10^3/uL (1.5-8.5); NEUTROPHILS % 62.2 % (36.0-66.0); PLATELET COUNT, AUTOMATED 228 10^3/uL (150-450); RED BLOOD COUNT 3.81 10^6/uL (4.00-5.40); WHITE BLOOD COUNT 7.2 10^3/uL (4.0-10.0)
[2021-10-23 06:42] LABS: INR 1.11; PROTHROMBIN TIME 14.7 SECONDS (12.7-14.5)
[2021-10-23 06:43] LABS: PARTIAL THROMBOPLASTIN TIME 28.4 SECONDS (25.9-37.0)
[2021-10-23 07:01] LABS: BLOOD UREA NITROGEN 15 MG/DL (7-18); CALCIUM LEVEL 8.6 MG/DL (8.8-10.2); CARBON DIOXIDE LEVEL 28 MEQ/L (21-32); CHLORIDE LEVEL 107 MEQ/L (98-107); FERRITIN 14 NG/ML (8-252); GLOMERULAR FILTRATION RATE > 60.0 (>39); GLUCOSE, FASTING 182 MG/DL (70-100); IRON (FE) 42 UG/DL (50-170); PERCENT SATURATION 11.4 % (13.2-45.0); POTASSIUM SERUM 4.1 MEQ/L (3.5-5.1); SODIUM LEVEL 141 MEQ/L (136-145); TOTAL IRON BINDING CAPACITY 368 UG/DL (250-450)
[2021-10-23] MEDS ORDERED: MIRALAX *UNIT DOSE* 17GM PACKET PO PRN (07:25)
[2021-10-23] MEDS ORDERED: allopurinoL 100 MG TAB PO SCH (09:00)
[2021-10-23] MEDS ORDERED: PANTOPRAZOLE 40MG VIAL IV SCH (09:00)
[2021-10-23] MEDS ORDERED: DOCUSATE SODIUM 100MG CAPSULE PO SCH (09:00)
[2021-10-23] MEDS ORDERED: OMEPRAZOLE 20MG CAP PO SCH (09:00)
[2021-10-23] MEDS ORDERED: FERROUS SULFATE 325MG TAB PO SCH (09:00)
[2021-10-23] MEDS ORDERED: NS 1,000 ML IV SCH (10:35)
[2021-10-23 10:47] LABS: HEMATOCRIT 34.3 % (36.0-47.0)
[2021-10-23] MEDS ORDERED: propofoL 200 MG/20 ML VIAL As Ordered ONE ×2 (12:01→13:32)
[2021-10-23] MEDS ORDERED: LIDOCAINE 2% 100MG/5ML SDV (FOR ANES.) As Ordered ONE (12:01)
[2021-10-23] MEDS ORDERED: LR 1,000 ML IV SCH (13:50)
[2021-10-23] MEDS ORDERED: ONDANSETRON 4MG/2ML VIAL IV PRN (13:50)
[2021-10-23 14:30] VITALS: BP 137/64
[2021-10-23 15:00] VITALS: BP 155/68
[2021-10-23 15:30] VITALS: BP 149/66
[2021-10-23] MEDS ORDERED: **NOTE PATIENT COMMENT** MISC XX ONE (16:00)
[2021-10-23] MEDS ORDERED: SUCR1SS PO (17:16)
[2021-10-23] MEDS ORDERED: SENNA 8.6 MG TAB (SENOKOT) PO SCH (21:00)
[2021-10-25] MEDS ORDERED: CHLORTHALIDONE 12.5MG PER 1/2 TABLET PO SCH (09:00)
[2021-10-25 11:55] LABS: FOLATE 12.6 NG/ML; VITAMIN B12 LEVEL 511 PG/ML
[2021-10-27] MEDS ORDERED: ELIQ5TAB PO (09:59)
[2021-10-27] MEDS ORDERED: DULO1CAP4 PO (09:59)
== END 2021-10-23 17:50 | disposition home or self-care (01) ==
LOC: M ED 16:57 → M ED INP 21:17 → ENRESERV 10-23 04:30 → CANRESERV 10-23 04:30 → ENRESERV 10-23 05:08 → M MS5PR 10-23 05:55
PROVIDERS: ADMIT Family Medicine; ATTEND Internal Medicine
DX: K44.9 Diaphragmatic hernia without obstruction or gangrene (principal); K25.9 Gastric ulcer, unspecified as acute or chronic, without hemorrhage or perforation; D62 Acute posthemorrhagic anemia; K92.1 Melena; K92.2 Gastrointestinal hemorrhage, unspecified; I48.91 Unspecified atrial fibrillation; I10 Essential (primary) hypertension; E11.9 Type 2 diabetes mellitus without complications; G47.30 Sleep apnea, unspecified; K21.9 Gastro-esophageal reflux disease without esophagitis; K57.90 Diverticulosis of intestine, part unspecified, without perforation or abscess without bleeding; F32.A Depression, unspecified; F41.9 Anxiety disorder, unspecified; M10.9 Gout, unspecified; E66.9 Obesity, unspecified; Z87.891 Personal history of nicotine dependence; Z79.899 Other long term (current) drug therapy; Z79.01 Long term (current) use of anticoagulants; Z79.84 Long term (current) use of oral hypoglycemic drugs; Z88.0 Allergy status to penicillin; Z88.2 Allergy status to sulfonamides; Z86.16 Personal history of COVID-19
CPT/HCPCS: 36415; 43235; 71046; 80048; 80076; 81001; 82607; 82728; 82746; 83550; 83690; 83880; 84484; 85014; 85018; 85025; 85610; 85730; 86850; 86900; 86901; 87426; 87631; 93005; 93041; 94760; 96361; 96374; 96375; 99285; C9113; G0378; J1815

== ENCOUNTER 2021-10-28 13:40 | Day surgery (SDC) | payer OTHER ==
[~2021-10-28] VITALS: Ht 170.2 cm; Wt 106.1 kg
[~2021-10-28 13:40] MED LIST changes: +AMLO1TAB25 PO; +ATOR1TAB21 PO; +DULO1CAP4 PO; +JARD1TAB PO; +NS 1,000 ML IV ONE; +SUCR1SS PO
[2021-10-28] MEDS ORDERED: propofoL 200 MG/20 ML VIAL As Ordered ONE ×3 (15:22→15:48)
[2021-10-28] MEDS ORDERED: LABETALOL 100MG/20ML VIAL As Ordered ONE (16:05)
[2021-10-28 16:18] VITALS: BP 134/60
== END 2021-10-28 16:19 | disposition home or self-care (01) ==
LOC: M OPP 13:40
PROVIDERS: ATTEND Internal Medicine Gastroenterology
DX: K57.30 Diverticulosis of large intestine without perforation or abscess without bleeding (principal); K64.8 Other hemorrhoids; K92.1 Melena; Z79.02 Long term (current) use of antithrombotics/antiplatelets; Z79.899 Other long term (current) drug therapy; Z88.0 Allergy status to penicillin; Z88.2 Allergy status to sulfonamides; Z87.891 Personal history of nicotine dependence

== ENCOUNTER → 2021-12-27 | Outpatient (REF) | payer OTHER ==
[~2021-12-27] MED LIST changes: -NS 1,000 ML IV ONE
[2021-12-28 13:02] LABS: PERCENT SATURATION 36.2 % (13.2-45.0)
== END ==
LOC: M LAB REF 12:09
PROVIDERS: ATTEND Internal Medicine
DX: D50.9 Iron deficiency anemia, unspecified (principal)

== ENCOUNTER → 2022-04-25 | Outpatient (REF) | payer OTHER | LOC: M LAB REF 16:11 | PROVIDERS: ATTEND Internal Medicine | DX: I48.0 Paroxysmal atrial fibrillation (principal) ==

== ENCOUNTER → 2022-06-28 | Outpatient (CLI) | payer OTHER ==
[2022-06-28 16:11] LABS: HEMATOCRIT 43.9 % (36.0-47.0); HEMOGLOBIN 13.3 g/dl (12.0-15.5); MEAN CORPUSCULAR HEMOGLOBIN 25.4 pg (27.0-33.0); MEAN CORPUSCULAR HGB CONC 30.3 g/dl (32.0-36.5); MEAN CORPUSCULAR VOLUME 83.9 fl (80.0-96.0); PLATELET COUNT, AUTOMATED 285 10^3/uL (150-450); RED BLOOD COUNT 5.23 10^6/uL (4.00-5.40); WHITE BLOOD COUNT 6.3 10^3/uL (4.0-10.0)
[2022-06-28 16:22] LABS: ERYTHROCYTE SEDIMENTATION RATE 7 mm/hr (0-30)
[2022-06-28 16:23] LABS: INR 0.94; PROTHROMBIN TIME 12.8 SECONDS (12.5-14.5)
[2022-06-28 16:42] LABS: ALBUMIN 3.9 G/DL (3.2-5.2); ALKALINE PHOSPHATASE 100 U/L (46-116); ALT/SGPT 32 U/L (7.0-40); AST/SGOT 24 U/L (<34); BILIRUBIN,TOTAL 0.7 MG/DL (0.3-1.2); BLOOD UREA NITROGEN 16 MG/DL (9-23); CARBON DIOXIDE LEVEL 29 MMOL/L (20-31); CHLORIDE LEVEL 101 MMOL/L (98-107); CREATININE FOR GFR 0.73 MG/DL (0.55-1.30); GLOMERULAR FILTRATION RATE > 60.0 (>39); GLUCOSE, FASTING 193 MG/DL (74-106); POTASSIUM SERUM 3.9 MMOL/L (3.5-5.1); SODIUM LEVEL 139 MMOL/L (136-145)
== END ==
LOC: M LAB 14:50
PROVIDERS: ATTEND Orthopaedic Surgery
DX: M17.11 Unilateral primary osteoarthritis, right knee (principal); K44.9 Diaphragmatic hernia without obstruction or gangrene; Z79.01 Long term (current) use of anticoagulants

== ENCOUNTER → 2023-01-06 | Outpatient (CLI) | payer OTHER ==
[~2023-01-06] MED LIST changes: -LOSA100T45 PO; +LOSA100T46 PO
[2023-01-06 18:00] LABS: ALBUMIN 3.9 G/DL (3.2-5.2); BLOOD UREA NITROGEN 15 MG/DL (9-23); CALCIUM LEVEL 9.8 MG/DL (8.3-10.6); CARBON DIOXIDE LEVEL 33 MMOL/L (20-31); CHLORIDE LEVEL 104 MMOL/L (98-107); CREATININE FOR GFR 0.77 MG/DL (0.55-1.30); GLOMERULAR FILTRATION RATE > 60.0 (>39); GLUCOSE, FASTING 142 MG/DL (74-106); MAGNESIUM LEVEL 1.9 MG/DL (1.8-2.4); PHOSPHORUS LEVEL 3.2 MG/DL (2.4-5.1); POTASSIUM SERUM 3.7 MMOL/L (3.5-5.1); SODIUM LEVEL 140 MMOL/L (136-145)
== END ==
LOC: M PLALAB 15:56
PROVIDERS: ATTEND Internal Medicine Cardiovascular Disease
DX: I50.32 Chronic diastolic (congestive) heart failure (principal)

== ENCOUNTER → 2023-01-16 | Outpatient (REF) | payer OTHER ==
[2023-01-17 11:15] LABS: DIGOXIN LEVEL 0.8 NG/ML (0.8-2.0)
[2023-01-17 11:23] LABS: URIC ACID 7.2 MG/DL (3.1-7.8)
== END ==
LOC: M LAB REF 09:52
PROVIDERS: ATTEND Internal Medicine
DX: I50.30 Unspecified diastolic (congestive) heart failure (principal); M19.90 Unspecified osteoarthritis, unspecified site; M10.9 Gout, unspecified; I11.0 Hypertensive heart disease with heart failure

== ENCOUNTER → 2023-03-29 | Outpatient (CLI) | payer OTHER | LOC: M RAD 16:17 | PROVIDERS: ATTEND Orthopaedic Surgery | DX: R22.42 Localized swelling, mass and lump, left lower limb (principal); M79.662 Pain in left lower leg ==

== ENCOUNTER → 2023-06-14 | Outpatient (REF) | payer OTHER | LOC: M LAB REF 16:41 | PROVIDERS: ATTEND Internal Medicine | DX: I50.30 Unspecified diastolic (congestive) heart failure (principal) ==

== ENCOUNTER → 2023-08-11 | Outpatient (CLI) | payer OTHER ==
[2023-08-11 11:08] LABS: BASO # 0.1 10^3/uL (0.0-0.2); BASO % 0.8 % (0.0-1.0); EOS # 0.4 10^3/uL (0.0-0.5); EOS % 6.1 % (0.0-3.0); HEMOGLOBIN 15.2 g/dl (12.0-15.5); LYMPH # 1.1 10^3/uL (1.5-5.0); LYMPH % 17.7 % (24.0-44.0); MEAN CORPUSCULAR VOLUME 93.7 fl (80.0-96.0); MONO # 0.6 10^3/uL (0.0-0.8); MONO % 9.7 % (2.0-8.0); NEUTROPHILS % 65.4 % (36.0-66.0); PLATELET COUNT, AUTOMATED 213 10^3/uL (150-450); RED BLOOD COUNT 4.91 10^6/uL (4.00-5.40); WHITE BLOOD COUNT 6.1 10^3/uL (4.0-10.0)
[2023-08-11 11:45] LABS: ALBUMIN 3.8 G/DL (3.2-5.2); ALKALINE PHOSPHATASE 84 U/L (46-116); ALT/SGPT 39 U/L (7.0-40); AST/SGOT 19 U/L (<34); BILIRUBIN,TOTAL 0.9 MG/DL (0.3-1.2); BLOOD UREA NITROGEN 18 MG/DL (9-23); CALCIUM LEVEL 9.1 MG/DL (8.3-10.6); CARBON DIOXIDE LEVEL 32 MMOL/L (20-31); CHLORIDE LEVEL 106 MMOL/L (98-107); CREATININE FOR GFR 0.71 MG/DL (0.55-1.30); GLOMERULAR FILTRATION RATE > 60.0 (>39); GLUCOSE, FASTING 192 MG/DL (74-106); POTASSIUM SERUM 3.9 MMOL/L (3.5-5.1); SODIUM LEVEL 141 MMOL/L (136-145); TOTAL PROTEIN 6.3 G/DL (5.7-8.2)
== END ==
LOC: M LAB 10:15
PROVIDERS: ATTEND Internal Medicine Cardiovascular Disease
DX: I50.32 Chronic diastolic (congestive) heart failure (principal); I47.10 Supraventricular tachycardia, unspecified; I11.0 Hypertensive heart disease with heart failure; I35.8 Other nonrheumatic aortic valve disorders; I27.23 Pulmonary hypertension due to lung diseases and hypoxia

== ENCOUNTER → 2023-08-29 | Outpatient (CLI) | payer OTHER | LOC: M EKG 12:59 | PROVIDERS: ATTEND Internal Medicine Cardiovascular Disease | DX: I47.19 Other supraventricular tachycardia (principal) ==

== ENCOUNTER → 2023-08-29 | Outpatient (CLI) | payer OTHER | LOC: M RAD 12:23 | PROVIDERS: ATTEND Internal Medicine Cardiovascular Disease | DX: I65.22 Occlusion and stenosis of left carotid artery (principal) ==

== ENCOUNTER → 2023-10-18 | Outpatient (CLI) | payer OTHER | LOC: M RAD 15:19 | PROVIDERS: ATTEND Nurse Practitioner Adult Health | DX: R91.8 Other nonspecific abnormal finding of lung field (principal) ==

== ENCOUNTER → 2023-12-05 | Outpatient (REF) | payer OTHER ==
[2023-12-05 14:39] LABS: URIC ACID 6.3 MG/DL (3.1-7.8)
[2023-12-06 12:54] LABS: DIGOXIN LEVEL 1.3 NG/ML (0.8-2.0)
== END ==
LOC: M LAB REF 13:37
PROVIDERS: ATTEND Internal Medicine
DX: M10.9 Gout, unspecified (principal); Z79.899 Other long term (current) drug therapy

== ENCOUNTER → 2023-12-08 | Outpatient (CLI) | payer OTHER | LOC: M RAD 14:48 | PROVIDERS: ATTEND Internal Medicine | DX: M18.11 Unilateral primary osteoarthritis of first carpometacarpal joint, right hand (principal); M25.541 Pain in joints of right hand; R22.31 Localized swelling, mass and lump, right upper limb ==

== ENCOUNTER → 2024-06-25 | Outpatient (REF) | payer OTHER ==
[2024-06-25 14:26] LABS: DIGOXIN LEVEL 0.9 NG/ML (0.8-2.0)
[2024-06-25 14:28] LABS: FERRITIN 23.4 NG/ML (7.3-270.7); URIC ACID 6.3 MG/DL (3.1-7.8)
== END ==
LOC: M LAB REF 12:49
PROVIDERS: ATTEND Internal Medicine
DX: M10.9 Gout, unspecified (principal); D50.9 Iron deficiency anemia, unspecified; I48.0 Paroxysmal atrial fibrillation; I50.30 Unspecified diastolic (congestive) heart failure

== ENCOUNTER → 2024-08-30 | Outpatient (CLI) | payer MEDICARE | LOC: M RAD 15:17 | PROVIDERS: ATTEND Internal Medicine | DX: E04.2 Nontoxic multinodular goiter (principal) ==

== ENCOUNTER → 2024-09-24 | Outpatient (CLI) | payer MEDICARE | LOC: M WHC 14:03 | PROVIDERS: ATTEND Internal Medicine | DX: Z12.31 Encounter for screening mammogram for malignant neoplasm of breast (principal); M81.0 Age-related osteoporosis without current pathological fracture ==

== ENCOUNTER → 2024-09-27 | Outpatient (CLI) | payer MEDICARE ==
[2024-09-27 15:09] LABS: HEMATOCRIT 45.4 % (36.0-47.0); MEAN CORPUSCULAR HEMOGLOBIN 30.9 pg (27.0-33.0); MEAN CORPUSCULAR VOLUME 93.4 fl (80.0-96.0); PLATELET COUNT, AUTOMATED 220 10^3/uL (150-450); RED BLOOD COUNT 4.86 10^6/uL (4.00-5.40); WHITE BLOOD COUNT 6.2 10^3/uL (4.0-10.0)
[2024-09-27 15:13] LABS: ERYTHROCYTE SEDIMENTATION RATE 2 mm/hr (0-30)
[2024-09-27 15:25] LABS: INR 0.93; PROTHROMBIN TIME 12.8 SECONDS (12.5-14.5)
[2024-09-27 15:41] LABS: ALBUMIN 3.9 G/DL (3.2-5.2); BILIRUBIN,TOTAL 0.7 MG/DL (0.3-1.2); CALCIUM LEVEL 9.4 MG/DL (8.3-10.6); CREATININE FOR GFR 0.76 MG/DL (0.55-1.30); GLOMERULAR FILTRATION RATE 80.2 (>39); POTASSIUM SERUM 4.1 MMOL/L (3.5-5.1); TOTAL PROTEIN 6.6 G/DL (5.7-8.2)
== END ==
LOC: M RAD 13:53
PROVIDERS: ATTEND Orthopaedic Surgery
DX: Z01.812 Encounter for preprocedural laboratory examination (principal); Z01.818 Encounter for other preprocedural examination; M17.12 Unilateral primary osteoarthritis, left knee; Z79.01 Long term (current) use of anticoagulants

== ENCOUNTER → 2024-10-01 | Outpatient (CLI) | payer MEDICARE | LOC: M WHC 10:24 | PROVIDERS: ATTEND Internal Medicine | DX: N64.59 Other signs and symptoms in breast (principal) | CPT/HCPCS: 76642; 77065; G0279 ==

== ENCOUNTER → 2024-10-03 | Outpatient (CLI) | payer MEDICARE | LOC: M WHC 11:09 | PROVIDERS: ATTEND Physician Assistant | DX: I65.23 Occlusion and stenosis of bilateral carotid arteries (principal) ==

== ENCOUNTER → 2024-12-04 | Outpatient (CLI) | payer MEDICARE ==
[~2024-12-04] MED LIST changes: +AMLO1TAB24 PO; +BUPR-766 PO; +DIGO0.253 PO; +METF-838 PO; +METO37.5 PO; +MYRB25TA PO; +OLME40TA PO; +OMEP40CA5 PO; +OXYB5TAB14 PO
[2024-12-04 11:03] VITALS: TEMP 98.5
[2024-12-04 11:51] VITALS: BP 130/70; O2SAT 99
== END ==
LOC: M WHCPRO 10:51
PROVIDERS: ATTEND Surgery
DX: C50.211 Malignant neoplasm of upper-inner quadrant of right female breast (principal)
CPT/HCPCS: 19285; 77065; A4648

== ENCOUNTER 2024-12-12 07:22 | Day surgery (SDC) | payer MEDICARE ==
[~2024-12-12] VITALS: Ht 170.2 cm; Wt 96.5 kg
[2024-12-12] MEDS ORDERED: GLIP10TA PO (08:02)
[2024-12-12] MEDS: METHYLENE BLUE 0.5% (5 MG/ML) 10 ML AMP As Ordered ONE (08:16)
[2024-12-12] MEDS: LR 1,000 ML IV SCH (08:30)
[2024-12-12] MEDS ORDERED: ROCURONIUM BROMIDE 50MG/5ML VIAL As Ordered ONE (08:30)
[2024-12-12] MEDS ORDERED: ETOMIDATE 20 MG/10 ML VIAL As Ordered ONE (08:32)
[2024-12-12] MEDS ORDERED: LIDOCAINE 2% 100 MG/5 ML SDV (FOR ANES.) As Ordered ONE (08:33)
[2024-12-12] MEDS ORDERED: GLUCAGON INJ 1 MG VIAL SC PRN (08:35)
[2024-12-12] MEDS ORDERED: GLUCOSE 4 GM CHEW PO PRN (08:35)
[2024-12-12] MEDS ORDERED: DEXTROSE 50% 50 ML SYRINGE IV PRN (08:35)
[2024-12-12] MEDS: INSULIN LISPRO (NovoLOG) PER UNIT SC PRN (08:46)
[2024-12-12] MEDS: ceFAZolin SOD 2 GM IV ONCE IV ONE (09:00)
[2024-12-12] MEDS ORDERED: LR 1,000 ML IV SCH (11:00)
[2024-12-12] MEDS: ONDANSETRON 4MG 2ML VIAL IV PRN (11:20)
[2024-12-12] MEDS: HYDROMORPHONE HCL 0.5 MG/0.5 ML SYRINGE IV PRN (11:21)
[2024-12-12 12:20] VITALS: BP 136/65; TEMP 97.1; O2SAT 98
== END 2024-12-12 13:06 | disposition home or self-care (01) ==
LOC: M SDC 07:22
PROVIDERS: ATTEND Surgery
DX: C50.211 Malignant neoplasm of upper-inner quadrant of right female breast (principal); Z17.0 Estrogen receptor positive status [ER+]; Z17.21 Progesterone receptor positive status; Z17.32 Human epidermal growth factor receptor 2 negative status; E11.9 Type 2 diabetes mellitus without complications; I48.91 Unspecified atrial fibrillation; I10 Essential (primary) hypertension; E78.00 Pure hypercholesterolemia, unspecified; R32 Unspecified urinary incontinence; M10.9 Gout, unspecified; K21.9 Gastro-esophageal reflux disease without esophagitis; Z79.899 Other long term (current) drug therapy; Z79.01 Long term (current) use of anticoagulants; Z79.84 Long term (current) use of oral hypoglycemic drugs; Z88.0 Allergy status to penicillin; Z88.2 Allergy status to sulfonamides; Z87.19 Personal history of other diseases of the digestive system
CPT/HCPCS: 19301; 88305; 88307; J0690; J1171; J1815; J2405; J3010

== ENCOUNTER → 2025-03-21 | Outpatient (CLI) | payer MEDICARE ==
[~2025-03-21] MED LIST changes: +ANAS1TAB2 PO; +GLIP10TA PO
== END ==
LOC: M ONCR 09:27
PROVIDERS: ATTEND General Practice
DX: C50.412 Malignant neoplasm of upper-outer quadrant of left female breast (principal); Z17.0 Estrogen receptor positive status [ER+]; Z17.21 Progesterone receptor positive status; Z17.32 Human epidermal growth factor receptor 2 negative status; Z98.890 Other specified postprocedural states; Z98.51 Tubal ligation status; Z80.3 Family history of malignant neoplasm of breast; Z82.3 Family history of stroke; Z87.891 Personal history of nicotine dependence; Z88.0 Allergy status to penicillin; Z88.1 Allergy status to other antibiotic agents; Z88.2 Allergy status to sulfonamides; Z79.811 Long term (current) use of aromatase inhibitors; Z79.84 Long term (current) use of oral hypoglycemic drugs; Z79.899 Other long term (current) drug therapy

== ENCOUNTER 2025-04-14 13:11 | Emergency (ER) | payer MEDICARE ==
[~2025-04-14] VITALS: Ht 170.2 cm; Wt 96.1 kg
[2025-04-14 13:40] LABS: BASO # 0.0 10^3/uL (0.0-0.2); BASO % 0.3 % (0.0-1.0); EOS # 0.0 10^3/uL (0.0-0.5); EOS % 0.0 % (0.0-3.0); LYMPH # 1.2 10^3/uL (1.5-5.0); LYMPH % 12.1 % (24.0-44.0); MONO # 0.7 10^3/uL (0.0-0.8); MONO % 7.2 % (2.0-8.0); NEUTROPHILS # 7.9 10^3/uL (1.5-8.5); NEUTROPHILS % 80.1 % (36.0-66.0); PLATELET COUNT, AUTOMATED 336 10^3/uL (150-450)
[2025-04-14 14:11] LABS: INR 1.15
[2025-04-14] MEDS ORDERED: ISOVUE-370 76% 100 ML VIAL As Ordered ONE (14:11)
[2025-04-14 14:12] LABS: CPK CREATINE PHOSPHOKINASE 37.0 U/L (34-145)
[2025-04-14 14:13] LABS: ALT/SGPT 25.0 U/L (7.0-40); AST/SGOT 13.0 U/L (<34); CALCIUM LEVEL 9.3 MG/DL (8.3-10.6); CARBON DIOXIDE LEVEL 18.0 MMOL/L (20-31); CHLORIDE LEVEL 112.0 MMOL/L (98-107); CK-MB VALUE MASS 2.2 NG/ML (<3.6); CREATININE FOR GFR 0.87 MG/DL (0.55-1.30); GLOMERULAR FILTRATION RATE 68.2 (>39); MB/CK RELATIVE INDEX 5.94 (< OR =4); POTASSIUM SERUM 4.3 MMOL/L (3.5-5.1); SODIUM LEVEL 145.0 MMOL/L (136-145)
[2025-04-14] MEDS: PANTOPRAZOLE 40MG VIAL IV ONE ×2 (14:33→19:24)
[2025-04-14 15:15] LABS: CK-MB VALUE MASS 2.1 NG/ML (<3.6)
[2025-04-14 15:16] LABS: CPK CREATINE PHOSPHOKINASE 36.0 U/L (34-145); DIGOXIN LEVEL 0.4 NG/ML (0.8-2.0); MB/CK RELATIVE INDEX 5.83 (< OR =4)
[2025-04-14] MEDS ORDERED: LEVO1TAB38 PO (15:25)
[2025-04-14] MEDS ORDERED: ANOR1AER INH (15:25)
[2025-04-14] MEDS ORDERED: FURO20TA2 PO (15:25)
[2025-04-14] MEDS ORDERED: OLAN2.5T53 PO (15:25)
[2025-04-14] MEDS ORDERED: HYDR1CAP25 PO (15:25)
[2025-04-14] MEDS ORDERED: ACET-683 PO (15:25)
[2025-04-14] MEDS ORDERED: SENN-52 PO (15:25)
[2025-04-14] MEDS ORDERED: FAMO40TA3 PO (15:25)
[2025-04-14] MEDS ORDERED: HOME MED LIST COMPLETE! XX SCH ×2 (15:30→16:05)
[2025-04-14 15:55] VITALS: BP 170/79
[2025-04-14] MEDS: METOPROLOL TART 25 MG TABLET PO ONE (15:55)
[2025-04-14] MEDS ORDERED: DULO60CA35 PO (16:00)
[2025-04-14] MEDS ORDERED: ATOR40TA75 PO (16:00)
[2025-04-14] MEDS ORDERED: GLIP-318 PO (16:00)
[2025-04-14 17:22] LABS: PLATELET COUNT, AUTOMATED 312 10^3/uL (150-450)
[2025-04-14 18:48] LABS: CK-MB VALUE MASS 2.5 NG/ML (<3.6)
[2025-04-14 18:49] LABS: CPK CREATINE PHOSPHOKINASE 50.0 U/L (34-145); MB/CK RELATIVE INDEX 5.0 (< OR =4)
[2025-04-14 22:06] VITALS: BP 155/76; TEMP 98.3; O2SAT 97
== END 2025-04-14 22:09 | disposition short-term general hospital (02) ==
LOC: M ED 13:11 → EDBD 13:11 → CANBEDREQ 19:14 → M ED 22:09
DX: K92.2 Gastrointestinal hemorrhage, unspecified (principal); R79.89 Other specified abnormal findings of blood chemistry; R00.0 Tachycardia, unspecified; I45.81 Long QT syndrome; I48.91 Unspecified atrial fibrillation; E11.9 Type 2 diabetes mellitus without complications; I10 Essential (primary) hypertension; K21.9 Gastro-esophageal reflux disease without esophagitis; C50.919 Malignant neoplasm of unspecified site of unspecified female breast; Z88.0 Allergy status to penicillin; Z88.2 Allergy status to sulfonamides; Z79.01 Long term (current) use of anticoagulants; Z79.84 Long term (current) use of oral hypoglycemic drugs; Z79.899 Other long term (current) drug therapy
CPT/HCPCS: 70450; 72125; 74174; 80047; 80048; 80076; 80162; 82550; 82553; 83690; 84484; 85025; 85027; 85610; 86850; 86900; 86901; 93005; 96374; 96375; 96376; 99285; J2470; J2765; Q9967

== ENCOUNTER → 2025-05-10 | Outpatient (CLI) | payer MEDICARE ==
[~2025-05-10] MED LIST changes: +ACET-683 PO; +ANOR1AER INH; +ATOR40TA75 PO; +DULO60CA35 PO; +FAMO40TA3 PO; +FURO20TA2 PO; +GLIP-318 PO; +HYDR1CAP25 PO; +LEVO1TAB38 PO; +OLAN2.5T53 PO; +PANT40TA29; +SENN-52 PO
[2025-05-10 14:07] LABS: BASO # 0.1 10^3/uL (0.0-0.2); BASO % 0.9 % (0.0-1.0); EOS # 0.2 10^3/uL (0.0-0.5); EOS % 3.6 % (0.0-3.0); LYMPH # 1.1 10^3/uL (1.5-5.0); LYMPH % 20.2 % (24.0-44.0); MONO # 0.6 10^3/uL (0.0-0.8); MONO % 10.8 % (2.0-8.0); NEUTROPHILS # 3.4 10^3/uL (1.5-8.5); NEUTROPHILS % 64.3 % (36.0-66.0); PLATELET COUNT, AUTOMATED 291 10^3/uL (150-450)
[2025-05-10 14:39] LABS: ALT/SGPT 35.0 U/L (7.0-40); AST/SGOT 30.0 U/L (<34); CALCIUM LEVEL 8.7 MG/DL (8.3-10.6); CARBON DIOXIDE LEVEL 24.0 MMOL/L (20-31); CHLORIDE LEVEL 107.0 MMOL/L (98-107); CREATININE FOR GFR 0.84 MG/DL (0.55-1.30); GLOMERULAR FILTRATION RATE 71.1 (>39); POTASSIUM SERUM 4.7 MMOL/L (3.5-5.1); SODIUM LEVEL 142.0 MMOL/L (136-145)
[2025-05-10 14:56] LABS: CA15-3 ANTIGEN 21.7 U/ML (<32.4)
[2025-05-12 17:26] LABS: IRON (FE) 20.0 UG/DL (50-170); PERCENT SATURATION 5.0 % (13.2-45.0)
[2025-05-12 17:32] LABS: VITAMIN B12 LEVEL 483.0 PG/ML (211-911)
== END ==
LOC: M LAB 13:41
PROVIDERS: ATTEND Internal Medicine Medical Oncology
DX: C50.919 Malignant neoplasm of unspecified site of unspecified female breast (principal)